=== PATIENT | female | born 1965 | race Hispanic/Latino ===

== ENCOUNTER 2017-09-29 16:47 | Emergency (ER) | payer OTHER ==
[~2017-09-29] VITALS: Ht 157.5 cm; Wt 77.1 kg
--- NOTE | 2017-09-29 17:18 | ED GI/GU/ABDOMINAL COMPLAINT ---
History of Present Illness General Chief Complaint: Low Back Pain/Injury Stated Complaint: PER SON LOWER BACK PAIN ON R SIDE Source: patient, family, old records, application developer manager Exam Limitations: language barrier Vital Signs & Intake/Output Vital Signs & Intake/Output Vital Signs Date Time Temp Pulse Resp B/P B/P Pulse O2 O2 Flow FiO2 Mean Ox Delivery Rate 09/29 1853 98.1 78 16 116/77 99 Room Air 09/29 1650 97.6 75 15 115/75 99 Room Air Room Air Allergies Coded Allergies: No Known Allergies (09/29/17) Triage Note: PT TO ED WITH SON FOR C/C OF R FLANK PAIN THAT RADIATES INTO R GROIN. ALSO COMPLAINS OF BURNING WITH URINATION. DENIES NAUSEA NOW, BUT FELT NAUSEAS THIS MORNING. Triage Nurses Notes Reviewed? yes ? n Is pt currently ? No Onset: Abrupt Duration: day(s): (6), intermittent, waxing and waning Timing: recent history Quality/Severity: moderate, sharpness Severity Numbers: 6 Location: right flank Radiation: RLQ Activities at Onset: none Prior Abdominal Problems: none No Modifying Factors: none Associated Symptoms: nausea HPI: 52-year-old female history of diabetes hypertension presents with family for evaluation who is interpreting as the patient primarily speaks Armenian complaining of a 6 day history of right flank pain radiates to the right lower quadrant. She denies any numbness or tingling in her leg no pain down her leg. She denies any trauma or injury. She is not taken anything for her symptoms. Pain is waxing and waning in intensity she does report intermittent nausea are denies vomiting. No diarrhea no change in her bowel movements. She does report urinary frequency. No history of kidney stones. No history of abdominal surgeries in the past chest pain or shortness breath. Symptoms are not worse with deep inspiration. (Gloria NORTH,Brandon) Past History Travel History Traveled to [place] past 21 day No Medical History Any Pertinent Medical History? see below for history Neurological: NONE EENT: NONE Cardiovascular: hypertension Respiratory: NONE Gastrointestinal: NONE Hepatic: NONE Renal: NONE Musculoskeletal: NONE Psychiatric: NONE Endocrine: DIBETES Blood Disorders: NONE Cancer(s): NONE SALES RELATIONSHIP MANAGER/Reproductive: NONE Surgical History Surgical History: non-contributory Psychosocial History What is your primary language Ivorian Tobacco Use: Never used ETOH Use: denies use Illicit Drug Use: denies illicit drug use Family History Hx Contributory? No (Brandon Willard) Review of Systems Review of Systems Constitutional: Reports: see HPI. Comments Review of systems: See HPI, All other systems negative. Constitutional, no chills no fever, HEENT: no sore throat no congestion Cardiovascular: No chest pain Skin: no rashes, no change in skin Respiratory: No dyspnea no cough GI: nausea no vomiting, no diarrhea, no bloating/constipation : No dysuria No hematuria, frequency Muscle skeletal: No joint pain, no neck pain, Neurologic: , no headache Heme/endocrine: No bruising (Brandon Willard) Physical Exam Physical Exam General Appearance: well developed/nourished, alert, awake Gastrointestinal: normal bowel sounds, soft, non-tender Comments: Well-developed well-nourished person in no acute distress HEENT: Normal EENT exam; PERRL, EOMI, HEAD is atraumatic. moist mucous membranes. Neck: Supple,normal range of motion Back: Nontender, no CVA tenderness. Full range of motion Cardiovascular: Regular rate and rhythms no murmur Respiratory: No respiratory distress. Patient speaking in full complete sentences. Breath sounds clear to auscultation bilaterally: NO W/R/R Abdomen: Soft, nontender nondistended, no appreciable organomegaly. Normal bowel sounds. No rebound/guarding, No appreciable enlargement of the abdominal aorta, No ascites. Extremity: No edema, full range of motion of extremities, Negative slr b/l Neuro: Alert oriented x3, motor sensory normal. There were no obvious focal neurologic abnormalities. Skin: No appreciable rash on exposed skin, skin is warm and dry. Psych: Mood and affect is normal, memory and judgment is normal. Core Measures ACS in differential dx? No Sepsis Present: No Sepsis Focused Exam Completed? No (Brandon Willard) Progress Differential Diagnosis: appendicitis, bowel obstruction, cholecystitis, hernia, kidney stone, UTI/pyelo, malignancy Plan of Care: Orders Procedure Date/time Status URINALYSIS 09/29 1710 Complete Laboratory Tests 09/29/17 1720: Urine Color STRAW, Urine Clarity CLEAR, Urine pH 6.0, Ur Specific [place] 1.010, Urine Protein NEG, Urine Ketones NEG, Urine Nitrite NEG, Urine Bilirubin NEG, Urine Urobilinogen 0.2, Ur Leukocyte Esterase NEG, Ur Microscopic EXAM NOT REQUIRED, Urine Hemoglobin NEG, Urine Glucose NEG Patient is declining anything for pain when offered. CAT scan urinalysis ordered. [address] scan, pt resting in nad, denies pain denies nausea 09/29/2017 6:39:28 PM I spoke with the patient regarding all of her lab results and CAT scan findings through her family. Discussed with him need for close HER primary care physician as well as urologist Tylenol Motrin for pain. She's been asymptomatic here in the ER she is declining anything for pain. Diagnostic Imaging: Viewed by Me: CT Scan. Discussed w/RAD: CT Scan. Radiology Impression: PATIENT: ROSEMARY MANNING PRESENT AGE: 52 PATIENT ACCOUNT NO: [id number] : 64 LOCATION: [facility] ORDERING PHYSICIAN: Brandon NORTH SERVICE DATE: 09/29/17 EXAM TYPE: CAT - CT ABD & PELVIS W/O IV CONTRAS EXAMINATION: CT ABDOMEN AND PELVIS WITHOUT CONTRAST CLINICAL INFORMATION: Right flank pain radiating into right lower quadrant. Assess for kidney stone. COMPARISON: None. TECHNIQUE: Multidetector volumetric imaging was performed from the superior aspect of the liver through the pubic symphysis. Sagittal and coronal reformatted images were obtained on the technologist's workstation. DLP: 501.69 mGy-cm FINDINGS: LUNG BASES: There is mild atelectasis at the lung bases. There are no pleural or pericardial effusions. The heart is normal in size. LIVER, GALLBLADDER, AND BILIARY TREE: The liver is normal in size, shape, and attenuation. No focal hepatic lesion or biliary ductal dilatation is present. The gallbladder is unremarkable with no evidence of radiopaque gallstones, gallbladder wall thickening, or obvious pericholecystic inflammatory changes. PANCREAS: The pancreas appears normal. SPLEEN: The spleen is normal in size. There are no focal abnormalities. ADRENAL GLANDS: The adrenal glands are not enlarged. KIDNEYS AND URETERS: There is minimal prominence of the right renal collecting system and proximal right ureter. However, no radiodense renal or ureteric calculi are demonstrated. There is an area of low attenuation toward the upper pole of the right kidney which measures 1.2 cm, consistent with a cyst. There are no calcifications in the left kidney or ureteric. There is an area of low attenuation at the upper pole of the left kidney which measures 3.2 cm, consistent with a simple renal cyst. Posteriorly and slightly more inferiorly there is an exophytic area which measures 1.5 cm, and which has Hounsfield units greater than simple fluid. There is no hydronephrosis or hydroureter on the left. Both kidneys are normal in size. BLADDER: The urinary bladder is partially distended. No calcifications are noted within the wall or lumen. GASTROINTESTINAL TRACT: The stomach and loops of small bowel are unremarkable. The appendix is normal. There is moderate stool within the large bowel. ABDOMINAL WALL: No significant hernia is appreciated. LYMPH NODES: There is no abdominal or pelvic lymphadenopathy. VASCULAR: The unenhanced vascular structures are unremarkable. PELVIC VISCERA: The uterus is not enlarged. There is no adnexal masses. There is no free fluid in the pelvis. OSSEOUS STRUCTURES: There are degenerative changes in the lower lumbar spine with facet arthropathy and disc protrusions. There are no acute osseous findings. IMPRESSION: 1. There is mild right-sided hydronephrosis and proximal hydroureter, but no radiodense renal ureteric calculi are demonstrated. There are bilateral renal cysts. An area toward the upper pole of the left kidney posteriorly has Hounsfield units greater than simple fluid and may be consistent with a complex cyst. Recommend ultrasound correlation. 2. The appendix appears normal. No pelvic masses or fluid collections are demonstrated. DICTATED BY: Carter Hyman MD DATE/TIME DICTATED:09/29/171817 MICE RAISER:LILIANA DATE/TIME TRANSCRIBED:09/29/171817 CONFIDENTIAL, DO NOT COPY WITHOUT APPROPRIATE AUTHORIZATION. <Electronically signed in Other Vendor System> SIGNED BY: Carter Hyman MD 09/29/171833 Initial ED EKG: none (Brandon Willard) Departure Departure Time of Disposition: 1836 Disposition: HOME OR SELF CARE Condition: Stable Clinical Impression Primary Impression: Flank pain Secondary Impressions: Hydronephrosis, Renal cyst Referrals: Patient Has No Primary Care Dr (PCP/Family) Pramod Red MD Additional Instructions: Follow up with your pmd as well as urologist dr red this week. zofran for nausea. tylenol or motrin for pain. return at anytime sooner with any concerns Departure Forms: Customer Survey General Discharge Information (Brandon Willard) PA/RADIO TIME SALES SUPERVISOR Co-Sign Statement Statement: ED Attending supervision documentation- I saw and evaluated the patient. I have also reviewed all the pertinent lab results and diagnostic results. I agree with the findings and the plan of care as documented in the PA's/RADIO TIME SALES SUPERVISOR's documentation. x I have reviewed the ED Record and agree with the PA's/RADIO TIME SALES SUPERVISOR's documentation. [] Additions or exceptions (if any) to the PAs/RADIO TIME SALES SUPERVISOR's note and plan are summarized below: [] (Laura GUERRIER,Leonidas)
--- NOTE | 2017-09-29 18:34 | CT SCAN REPORT ---
EXAMINATION: CT ABDOMEN AND PELVIS WITHOUT CONTRAST CLINICAL INFORMATION: Right flank pain radiating into right lower quadrant. Assess for kidney stone. COMPARISON: None. TECHNIQUE: Multidetector volumetric imaging was performed from the superior aspect of the liver through the pubic symphysis. Sagittal and coronal reformatted images were obtained on the technologist's workstation. DLP: 501.69 mGy-cm FINDINGS: LUNG BASES: There is mild atelectasis at the lung bases. There are no pleural or pericardial effusions. The heart is normal in size. LIVER, GALLBLADDER, AND BILIARY TREE: The liver is normal in size, shape, and attenuation. No focal hepatic lesion or biliary ductal dilatation is present. The gallbladder is unremarkable with no evidence of radiopaque gallstones, gallbladder wall thickening, or obvious pericholecystic inflammatory changes. PANCREAS: The pancreas appears normal. SPLEEN: The spleen is normal in size. There are no focal abnormalities. ADRENAL GLANDS: The adrenal glands are not enlarged. KIDNEYS AND URETERS: There is minimal prominence of the right renal collecting system and proximal right ureter. However, no radiodense renal or ureteric calculi are demonstrated. There is an area of low attenuation toward the upper pole of the right kidney which measures 1.2 cm, consistent with a cyst. There are no calcifications in the left kidney or ureteric. There is an area of low attenuation at the upper pole of the left kidney which measures 3.2 cm, consistent with a simple renal cyst. Posteriorly and slightly more inferiorly there is an exophytic area which measures 1.5 cm, and which has Hounsfield units greater than simple fluid. There is no hydronephrosis or hydroureter on the left. Both kidneys are normal in size. BLADDER: The urinary bladder is partially distended. No calcifications are noted within the wall or lumen. GASTROINTESTINAL TRACT: The stomach and loops of small bowel are unremarkable. The appendix is normal. There is moderate stool within the large bowel. ABDOMINAL WALL: No significant hernia is appreciated. LYMPH NODES: There is no abdominal or pelvic lymphadenopathy. VASCULAR: The unenhanced vascular structures are unremarkable. PELVIC VISCERA: The uterus is not enlarged. There is no adnexal masses. There is no free fluid in the pelvis. OSSEOUS STRUCTURES: There are degenerative changes in the lower lumbar spine with facet arthropathy and disc protrusions. There are no acute osseous findings. IMPRESSION: 1. There is mild right-sided hydronephrosis and proximal hydroureter, but no radiodense renal ureteric calculi are demonstrated. There are bilateral renal cysts. An area toward the upper pole of the left kidney posteriorly has Hounsfield units greater than simple fluid and may be consistent with a complex cyst. Recommend ultrasound correlation. 2. The appendix appears normal. No pelvic masses or fluid collections are demonstrated.
[2017-09-29 18:53] VITALS: BP 116/77
== END 2017-09-29 18:55 ==
LOC: ERH 16:47
DX: N13.30 Unspecified hydronephrosis (principal); N28.1 Cyst of kidney, acquired
CPT/HCPCS: 74176; 81003